=== PATIENT | male | born 1970 | race Caucasian/White ===

== ENCOUNTER 2017-01-02 17:46 | Inpatient (IN) | payer OTHER ==
[~2017-01-02] VITALS: Ht 162.6 cm; Wt 77.1 kg
--- NOTE | 2017-01-02 18:32 | CT SCAN REPORT ---
EXAMINATION: CT HEAD WITHOUT CONTRAST CLINICAL INFORMATION: Right-sided facial numbness for 2 hours. COMPARISON: None TECHNIQUE: Contiguous axial imaging was performed from the skull base to vertex without intravenous administration of contrast. DLP: 608 mGy-cm FINDINGS: There is no evidence of acute intracranial hemorrhage or territorial infarction. No abnormal mass effect or midline shift is seen. Jimenez to white matter differentiation is well preserved. No extra-axial fluid collections are identified. The ventricles are normal in size. There is no abnormal attenuation within the brain parenchyma. The osseous structures and soft tissues are normal. The mastoid air cells and visualized portions of the paranasal sinuses are well aerated. There are postoperative changes along medial sandra of both maxillary sinuses. IMPRESSION: No acute intracranial pathology.
--- NOTE | 2017-01-02 18:47 | ED GENERAL ADULT ---
See Addendum History of Present Illness General Chief Complaint: Neuro Symptoms/ Deficit Stated Complaint: STROKE SYMPTOMS PER PT Source: patient Exam Limitations: no limitations Vital Signs & Intake/Output Vital Signs & Intake/Output Vital Signs Date Time Temp Pulse Resp B/P B/P Pulse O2 O2 Flow FiO2 Mean Ox Delivery Rate 01/02 1802 99.3 95 16 130/84 96 Room Air Allergies Coded Allergies: horse dander (Severe, THROAT SWELLING 01/02/17) milk (Mild, ALLERGIC RHINITIS 01/02/17) Triage Note: RECEIVED 46 YO MALE C/O RIGHT FACIAL NUMBNESS STARTED ABOUT 4 PM TODAY. NO UNILATERAL WEAKNESS OR NUMBNESS NOTED. NO FACIAL DROOP NOTED. NO SLURRED SPEECH. PT JUST GOT BACK FROM [place] THIS THURSDAY AND WAS IN THE [facility] A FEW WEEKS AGO. PT HAS HAD A FEVER AND RIGHT EAR PAIN SINCE THURSDAY. PT SEEN PMD AT [facility] TODAY AND DX WITH AN EAR INFECTION AND PLACED ON ANTIBIOTICS. Triage Nurses Notes Reviewed? yes Onset: Abrupt Duration: hour(s): Timing: recent history HPI: 01/02/17 6:48 PM 46-year-old male presents to the emergency department complaining of right sided facial numbness. According to the patient and his family he was in his usual state of health until the past week. He said that they were on a tropical cruise. Now the patient presents with a sudden onset of right sided facial numbness. No weakness. No ataxia. No definite slurred speech. He has had a recent fever also admits to a tick bite within the last several months. The onset of the symptoms were abrupt, the duration was today, the severity was significant as the symptoms required him to come to the emergency department for care. Past History Travel History Traveled to [place] past 21 day No Medical History Any Pertinent Medical History? see below for history Neurological: NONE EENT: NONE Cardiovascular: NONE Respiratory: asthma Gastrointestinal: NONE Hepatic: NONE Renal: NONE Musculoskeletal: NONE Psychiatric: NONE Endocrine: NONE Blood Disorders: NONE Cancer(s): NONE Surgical History Surgical History: non-contributory Psychosocial History What is your primary language Serbian Tobacco Use: Never used Family History Hx Contributory? No Review of Systems Review of Systems Constitutional: Reports: fever. EENTM: Reports: ear pain. Respiratory: Reports: no symptoms. Cardiovascular: Reports: no symptoms. Denies: chest pain. GI: Reports: no symptoms. Denies: abdominal pain. Genitourinary: Reports: no symptoms. Musculoskeletal: Reports: no symptoms. Skin: Reports: no symptoms. Neurological/Psychological: Reports: no symptoms. Hematologic/Endocrine: Reports: no symptoms. Immunologic/Allergic: Reports: no symptoms. All Other Systems: Reviewed and Negative Physical Exam Physical Exam General Appearance: well developed/nourished, alert, awake, anxious, mild distress Head: atraumatic, normal appearance Eyes: Bilateral: normal appearance, PERRL, EOMI. Ears, Nose, Throat: normal pharynx, normal ENT inspection Neck: normal inspection, supple Respiratory: normal breath sounds, chest non-tender, no respiratory distress Cardiovascular: regular rate/rhythm Peripheral Pulses: 4+ radial (R), 4+ radial (L) Gastrointestinal: soft, non-tender Back: normal range of motion Extremities: no edema Neurologic/Psych: no motor/sensory deficits, awake, alert, oriented x 3 Skin: intact, normal color, warm/dry Comments: The patient has a normal neurological exam is completely asymptomatic now in the emergency Department CT scan of the head was negative labs have been ordered. The patient was signed out to Dr. Barnett at 7 PM. labs and ekg pending. Core Measures ACS in differential dx? No CVA/TIA Diagnosis: No Severe Sepsis Present: No Septic Shock Present: No Progress Differential Diagnoses I considered the following diagnoses in my evaluation of the patient: [CVA, TIA, Lyme disease, Barnett's palsy, otitis media, otitis externa, facial cellulitis] Plan of Care: follow labs reevaluate Initial ED EKG: pending Departure Departure Disposition: STILL A PATIENT Condition: Stable Clinical Impression Primary Impression: Facial weakness Referrals: PATIENT HAS NO PRIMARY CARE DR Departure Forms: Customer Survey General Discharge Information Critical Care Note Critical Care Note Critical Care Time: non-applicable
[2017-01-02 19:54] LABS: ABSOLUTE BASOPHIL COUNT 0 /CUMM (0.0-0.2); ABSOLUTE EOSINOPHIL COUNT 0 /CUMM (0.0-0.7); ABSOLUTE GRANULOCYTE CT 4.4 /CUMM (1.4-6.5); ABSOLUTE LYMPH COUNT 0.8 /CUMM (1.2-3.4); ABSOLUTE MONOCYTE COUNT 0.7 /CUMM (0.10-0.60); BASOPHIL % 0.3 % (0.0-2.0); EOSINOPHIL % 0.5 % (0-5); GRANULOCYTE % 74.1 % (42.2-75.2); HEMATOCRIT 43.3 % (42-52); MEAN CORPUSCULAR HGB 30.1 PG (27.0-31.0); MEAN CORPUSCULAR HGB CONC 34.1 G/DL (33.0-37.0); MEAN CORPUSCULAR VOLUME 88.3 FL (80.0-94.0); MEAN PLATELET VOLUME 8.8 FL (7.4-10.4); PLATELET COUNT 193 /CUMM (130-400); RBC DISTRIBUTION WIDTH 12.2 % (11.5-14.5); RED BLOOD CELL CT 4.91 /CUMM (4.70-6.10)
--- NOTE | 2017-01-02 20:00 | RADIOLOGY REPORT ---
EXAMINATION: XR PORTABLE CHEST CLINICAL INFORMATION: Fever. COMPARISON: None TECHNIQUE: Portable frontal view of the chest was obtained. 7:12 PM FINDINGS: No significant abnormality is noted involving the heart, lungs, mediastinum, bony thorax or soft tissues. IMPRESSION: Unremarkable examination.
[2017-01-02] MEDS ORDERED: AMOX-CLAV 875-1 EACH PO (23:58)
--- NOTE | 2017-01-03 01:10 | History & Physical ---
DION QUINTANILLAJAYASHREECLAUDE 01/03/17 0109: General Information and HPI MD Statement: I have seen and personally examined ADI MCKEE and documented this H& P. The patient is a 46 year old M who presented with a patient stated chief complaint of right-sided facial numbnessX 1 day. Source of Information: patient Exam Limitations: no limitations History of Present Illness: Mr Mckee is a 46-year-old man who is known to be in his usual state of health until 1 week ago. He has no significant past medical history. He came to [facility] with a chief concern of right-sided facial numbness 1 day. As per the patient, he returned from a cruise trip from [facility] one week ago , and developed right ear pain and fever (recorded temperature 101, 105). Reported swimming several times during the trip, and he did not have any symptoms at the time. After he was seen by a physician at work, he was started on an antibiotic for the treatment of right ear infection. The p.m. of the admission to [facility], he noted to have right facial numbness, tingling and not associated with any weakness or slurring of speech. Episode lasted for a few minutes, and resolved with no intervention. Friend was present at the time of the episode, who reported weakness on one side, but the patient did not feel any weakness or drooling. Also reported feeling dizzy, and had severe ear ache, 8/10, radiation to the right side of the face for the last 1 day. No weakness or numbness of upper or lower extremities, loss of bladder or bowel function, loss of consciousness, seizures. Reported to have had a tick bite ( likely from his dog) and did not have any rash at the time. No palpitations, chest pain, cough, abdominal pain, vomiting or diarrhea. No prodromal symptoms noted. Nonsmoker, occasional alcoholic, with children. Family history significant for brain cancer in father and diabetes in mother. Reported being treated for a skin condition, what appears to be folliculitis with prednisone and antibiotic one month ago. Allergies/Medications Allergies: Coded Allergies: horse dander (Severe, THROAT SWELLING 01/02/17) milk (Mild, ALLERGIC RHINITIS 01/02/17) Home Med list Doxycycline Hyclate 100 MG CAPSULE 1 MG PO BID Lyme Gabapentin 300 MG CAPSULE 1 TAB PO Q8P PRN pain Valacyclovir Hydrochloride (Valtrex) 500 MG TABLET 2 TAB PO TID HSV Observation Initial Note - I have personally examined ADI MCKEE on 01/03/17 at 0619. The disposition of ADI MCKEE is uncertain at this time and before a determination can be made, he requires a period of observation for the following reasons #1 check carotid Doppler #2 check echocardiogram #3 neurology consult #4 workup for ruling out causes for TIA. Past History Travel History Traveled to [place] past 21 day No Medical History Neurological: NONE EENT: NONE Cardiovascular: NONE Respiratory: asthma Gastrointestinal: NONE Hepatic: NONE Renal: NONE Musculoskeletal: NONE Psychiatric: NONE Endocrine: NONE Blood Disorders: NONE Cancer(s): NONE Surgical History Surgical History: non-contributory Past Family/Social History Family History Relations & Conditions if any FATHER (brain cancer). Functional Ability ADLs Independent: dressing, eating, toileting, bathing. Ambulation: independent IADLs Independent: shopping, housework, finances, food prep, telephone, transportation , medication admin. Sexual History Sexually Active Yes Review of Systems Review of Systems Constitutional: Reports: see HPI, fever, malaise. Denies: weakness. EENTM: Reports: ear pain. Denies: blurred vision, eye pain, eye drainage, eye tearing, ear redness, hearing changes. Cardiovascular: Denies: chest pain, orthopena, palpitations. Respiratory: Denies: cough, short of breath. GI: Denies: abdominal pain, diarrhea, melena, nausea. Genitourinary: Denies: dysuria. Musculoskeletal: Denies: back pain, joint pain. Skin: Denies: change in skin color. Neurological/Psychological: Reports: numbness, tingling. Denies: anxiety, headache, paresthesia, tonic- clonic seizures. Hematologic/Endocrine: Denies: bruising, bleeding. Immunologic/Allergic: Denies: splenectomy. Exam & Diagnostic Data Last 24 Hrs of Vital Signs/I&O Vital Signs Date Time Temp Pulse Resp B/P B/P Pulse O2 O2 Flow FiO2 Mean Ox Delivery Rate 01/03 0226 100.3 01/03 0151 100.1 101 20 142/80 98 Room Air 01/03 0125 100.9 100 20 139/80 94 Room Air 01/02 2314 98.1 82 18 148/89 95 Room Air Room Air 01/02 2102 98.2 80 18 127/82 93 Room Air 01/02 2100 98.2 80 18 127/80 93 Room Air 01/02 1802 99.3 95 16 130/84 96 Room Air Intake & Output 07 0800 07/ 0000 01/02 1600 Intake Total Output Total Balance Patient 170 lb 170 lb Weight Weight Estimated Measurement Method Physical Exam General Appearance Alert, Oriented X3, Cooperative, No Acute Distress Skin No Rashes, No Breakdown, No Significant Lesion Skin Temp/Moisture Exam: Warm/Dry Sepsis Skin Exam (color): Normal for Ethnicity HEENT Atraumatic, PERRLA, EOMI, Mucous Membr. moist/pink, air fluid levels Neck Supple, No JVD, No thryomegaly Lymphatic Axillary nl, Cervical nl Cardiovascular Regular Rate, Normal S1, Normal S2, No Murmurs Lungs Clear to Auscultation, Normal Air Movement Abdomen Normal Bowel Sounds, Soft, No Tenderness Neurological Normal Gait, Normal Speech, Strength at 5/5 X4 Ext Extremities No Clubbing, No Cyanosis, No Edema Vascular Pulses Symmetrical Sepsis Peripheral Pulse Location: Dorsalis Pedis Sepsis Peripheral Pulse Exam: Bounding Diagnostic Data EKG Results Normal sinus rhythm, normal axis, no ST-T wave changes noted. Normal MA interval. CXR Results Unremarkable examination. Other Results CAT - CT HEAD WO IV CONTRAST No acute intracranial pathology. Assessment/Plan Assessment: He is a middle-aged man with no significant past medical history or any risk factors, is being evaluated for right facial numbness likely from right otitis externa. At the time of admission, vitals-temperature 99.3, pulse rate 95, respirations 16, blood pressure 1:30/84, pulse ox 96% on room air. Lab findings indicated no leukocytosis, normal H&H and WBC 6.0, hemoglobin 14.3, platelets 193. Normal electrolytes, renal function and hepatic liver panel. Cardiac enzymes-negative. Radiological findings-CT head was unremarkable, did not reveal any acute pathology-hemorrhage or ischemic changes. EKG revealed normal sinus rhythm with normal axis. No ST-T wave changes or arrhythmias. Differential diagnosis: #1 acute otitis media #2 rule out transient ischemic attack #3 trigeminal viral neuritis. Below is the problem list and plan: #1 right facial numbness-likely due to acute otitis media. Although the patient had symptoms similar to a TIA, the patient needs to be monitored at least for 24 hours on telemetry to rule out any cardiac arrhythmias and have neuro checks. He has been started on Augmentin for acute otitis externa, and would continue the antibiotics for a period of 7 days. If the symptoms worsen, or have any mastoiditis, may have to get a CAT scan in the future. ENT evaluation as an outpatient, for resolution of pathology. Although there could be a competent of viral infection, prednisone is not indicated at this time. Patient has already taken aspirin-full dose, and would check lipid panel and dose statin. Carotid Doppler to be obtained, echocardiogram. Swallow [id number]. Serial echocardiograms and cardiac enzymes to be obtained. Neurology consult in the a.m. EnT consut in the am. #2 DVT prophylaxis-pharmacological. / As Ranked By This Provider Problem List: 1. Facial weakness Core Measures/Miscellaneous Acute Coronary Syndrome ACS Diagnosis: No Cerebrovascular Accident CVA/TIA Diagnosis: No Date Last Known Well: 01/02/17 Time Last Known Well: 1600 Symptom Start Date: 01/02/17 Symptom Start Time: 1600 Bedside Swallow Eval Done: Yes Result of Evaluation: Pass Antithrombotic: No AFIB: No Aflutter: No Anticoagulant: No Evidence of Atherosclerosis: No LDL Assessed Within 24 Hours: Yes Currently on Statin: No Congestive Heart Failure CHF Diagnosis: No VTE (View Protocol) VTE Risk Factors: Acute medical illness No [facility] VTE prophylaxis d/t: No contraindications No VTE Pharm Prophylaxis d/t: No contraindications VTE Diagnosis: No VTE Type: NONE VTE Confirmed by (Test): NONE Sepsis (View Protocol) Severe Sepsis Present: No Septic Shock Septic Shock Present: No Miscellaneous Documentation Attending Case Discussed With: RADHA EVANS,LALITA Primary Care Physician: ALBA EAGLE MD A Patient sees these Specialists none Level of Patient Care: Telemetry EDWIN HUERTAS 01/03/17 0158: Resident Review Statement Resident Statement: examined this patient, discussed with sports management internship Other Findings: Patient is a 46-year-old women with no significant past medical history presented to the ED for evaluation of sudden onset right-sided facial numbness with tingling. Patient mentioned that he was in his usual state of health until this Thursday and he came back from a cruise trip and developed severe right-sided ear pain associated with fever patient took Tylenol with Advil at home without any improvement in symptoms he was seen by a physician at his work and started him on Augmentin 875 mg twice a day for total of 5 days. Today while he was driving he noticed sudden onset right-sided facial numbness with tingling associated with blurry vision in the right eye, patient took full dose of aspirin 325 mg once and that resulted in resolution of the symptoms within 2 hours Patient denied any slurring of speech/drooling/ any weakness. Denies any chest discomfort or breathing or palpitations . Denied any headaches or dizziness or lightheadedness Patient also admitted that he had a tick bite within the last several months. Patient was also treated for possible skin dermatitis with tapered prednisone about a couple of months ago. While on admission to be 99.3, pulse 95, respiratory rate 16, blood pressure 130 /84 on room air. General Appearance: Alert, not in acute distress Skin: Grossly normal HEENT: PERRLA Neck: Supple, No JVD Cardiovascular: Regular Rate, Normal S1, Normal S2, No Murmurs Lungs: Clear to Auscultation, with some crackles Abdomen: Normal Bowel Sounds, Soft, No Tenderness Neurological: Normal Speech, Strength at 5/5 X4 Ext, Cranial Nerves 3-12 NL, Reflexes 2+ Extremities: No edema in the lower extremities\ Vascular: Normal Pulses . Normal BEP, H&H is stable, chest x-ray did not reveal any acute cardiopulmonary pathology CT scan of the head is negative. Assessment: This is a 46-year-old women with no significant past medical history presented to the ED for evaluation of sudden onset right-sided facial numbness with tingling, apparently symptoms resolved after taking full dose of aspirin. Although the likelihood of TIA is very unlikely but should be ruled out. , Also patient has been having right-sided ear pain with fever and chills since Thursday. Plan Rule out TIA-although the possibility is very less likely. * We'll keep the patient in observation for 24 hours. * Doppler carotid ultrasound and echocardiogram. * Patient passed bedside swallow evaluation no need to do any formal swallow evaluation in the morning. * Neurochecks every 2 hours * Neurology consult in the morning. * Patient already took full dose of aspirin 325 mg, will consider continue aspirin. * Check lipid panel in the morning. 2.Acute otitis media(severe right ear pain with fever): * ENT examination revealed possible underlying biliary infection * Will continue with Augmentin 875 mg twice a day. * Will obtain ENT consult in the morning DVT prophylaxis with Lovenox Mild to moderate pain controlled with Tylenol Patient is full code NAIF LR 01/03/17 0515: Attending MD Review Statement Attending Statement Attending MD Statement: examined this patient, discuss w/resident/PA/SYSTEMS DEVELOPMENT CONSULTANT, agreed w/resident/PA/SYSTEMS DEVELOPMENT CONSULTANT, reviewed EMR data (avail), reviewed images, amended to note Attending Assessment/Plan: CC: Right face numbness PMH: None Patient came to ER for right facial numbness and tingling, transient, resolved after taking aspirin and coming to ER, had mild decreased vision denied any slurring speech or drooling, no tingling numbness in any of the extremities or neurological weakness. Patient had been having some ear pain and right facial pain and jaw pain few days, had fever of 103, went to PCP and was prescribed Augmentin to 1 tablet of it so far. Patient went for cruising, went scuba diving and deep sea diving, [employer]. No family history of stroke or [place], denies smoking, occasional alcohol use, no similar complaints in the past. Vitals: T max in ER 99.3, HR 95, RR 16, blood pressure 130/85, saturating well on room air. On exam: A O 3, cooperative, no acute distress, neck supple, JVD normal, no lymphadenopathy, mucosa moist, complete neurological examination shows no focal neurological deficit, no dependent edema, no obvious skin rashes or inflammation CVS: S1-S2, RRR. RS: Clear to auscultate bilaterally. Abdomen: Soft, NT, ND, bowel sounds present. Right ear: Mild retraction of TM with possible fluid level. No external discharge. No mastoid tenderness, no rash Labs: CBC, BMP, LFT, troponin unremarkable CXR: No acute cardiopulmonary process CT head: No acute intracranial pathology A and P 46-year-old male with no significant past medical history came to ER for transient right facial tingling numbness which is resolved, no other associated neurological symptoms or findings on examination. He also has right ear pain, jaw pain, facial pain, no ear discharge, no ear trauma. Of note he had been swimming, scuba diving, deep sea diving, [employer] recently in his cruise. Suspicion of acute otitis media with transmitted pain but source office tingling numbness is unclear at this point. According to ER physician, he needs TIA workup given his transient neurological symptoms. + Right facial numbness + Right ear pain : ? Otitis media - Place in observation on telemetry - Telemetry monitoring - ENT consult - Continue by mouth Augmentin - Antihistaminic decongestants - Carotid Doppler, 2-D echo - Neurologic consult - Continue aspirin 81 - Adequate pain control
[2017-01-03 01:51] VITALS: BP 142/80
[2017-01-03 07:43] VITALS: BP 128/70
[2017-01-03 09:26] LABS: ABSOLUTE BASOPHIL COUNT 0 /CUMM (0.0-0.2); ABSOLUTE EOSINOPHIL COUNT 0.1 /CUMM (0.0-0.7); ABSOLUTE MONOCYTE COUNT 0.7 /CUMM (0.10-0.60); BASOPHIL % 0.5 % (0.0-2.0); EOSINOPHIL % 1.8 % (0-5); GRANULOCYTE % 63.5 % (42.2-75.2); MEAN CORPUSCULAR HGB 30.4 PG (27.0-31.0); MEAN CORPUSCULAR HGB CONC 34.5 G/DL (33.0-37.0); MEAN PLATELET VOLUME 9.4 FL (7.4-10.4); PLATELET COUNT 179 /CUMM (130-400); RBC DISTRIBUTION WIDTH 12.1 % (11.5-14.5); RED BLOOD CELL CT 4.88 /CUMM (4.70-6.10); WHITE BLOOD CELL COUNT 4.8 /CUMM (4.8-10.8)
--- NOTE | 2017-01-03 10:24 | PN- Att Addend ---
Attending Addendum Attending Brief Note Patient seen and examined. Plan of care discussed with the medical team and the patient. Available lab work and radiology test reports were reviewed. Patient denies any chest pain but complains of intermittent numbness over the right side of face. Denies any visual blurring or any tingling and numbness in hands or feet. Denies any motor weakness otherwise. No hearing loss is reported. Vital Signs Date Time Temp Pulse Resp B/P B/P Pulse O2 O2 Flow FiO2 Mean Ox Delivery Rate 01/03 0743 98.9 70 20 128/70 95 Room Air 01/03 0226 100.3 01/03 0151 100.1 101 20 142/80 98 Room Air 01/03 0125 100.9 100 20 139/80 94 Room Air 01/02 2314 98.1 82 18 148/89 95 Room Air Room Air 01/02 2102 98.2 80 18 127/82 93 Room Air 01/02 2100 98.2 80 18 127/80 93 Room Air 01/02 1802 99.3 95 16 130/84 96 Room Air Intake & Output 01/03 1600 01/03 0800 01/03 0000 Intake Total 200 Output Total Balance 200 Intake, IV 0 Intake, Oral 200 Number 0 Bowel Movements Patient 170 lb 170 lb Weight Weight Estimated Measurement Method Exam: General: Patient awake alert oriented without any distress CVS: S1 plus S2 without any murmur or gallops Chest: Few scattered crepitation without any wheeze. There is no respiratory distress. 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 Pupils are equal bilaterally and reactive to light. Extremities: No edema; no clubbing or cyanosis noted Ears examination: No evidence of otitis externa; right side tympanic membrane appears dull and bulging but not read I have examined his teeth and there was no evidence of any abscess or inflammation gums Laboratory Tests 01/03 01/03 01/03 0825 0825 0135 Chemistry Sodium (137 - 145 mmol/L) 141 Potassium (3.5 - 5.1 mmol/L) 4.2 Chloride (98 - 107 mmol/L) 99 Carbon Dioxide (22 - 30 mmol/L) 27 Anion Gap (5 - 16) 15 BUN (9 - 20 mg/dL) 11 Creatinine (0.7 - 1.2 mg/dL) 0.8 Estimated GFR (>60 ml/min) > 60 BUN/Creatinine Ratio (7 - 25 %) 13.8 Troponin I (<0.11 ng/ml) Cancelled < 0.01 < 0.01 Triglycerides (<150 mg/dL) 123 Cholesterol (< 200 MG/DL) 175 LDL Cholesterol, Calc (65 - 129 mg/dL) 120 HDL Cholesterol (40 - 60 mg/dL) 31 L Cholesterol/HDL Ratio (0.00 - 4.88 %) 6 H Hematology CBC w Diff NO MAN DIFF REQ WBC (4.8 - 10.8 /CUMM) 4.8 RBC (4.70 - 6.10 /CUMM) 4.88 Hgb (14.0 - 18.0 G/DL) 14.8 Hct (42 - 52 %) 43.0 MCV (80.0 - 94.0 FL) 88.0 MCH (27.0 - 31.0 PG) 30.4 RDW (11.5 - 14.5 %) 12.1 Plt Count (130 - 400 /CUMM) 179 MPV (7.4 - 10.4 FL) 9.4 Gran % (42.2 - 75.2 %) 63.5 Lymphocytes % (20.5 - 51.1 %) 20.1 L Monocytes % (1.7 - 9.3 %) 14.1 H Eosinophils % (0 - 5 %) 1.8 Basophils % (0.0 - 2.0 %) 0.5 Absolute Granulocytes (1.4 - 6.5 /CUMM) 3.0 Absolute Lymphocytes (1.2 - 3.4 /CUMM) 1.0 L Absolute Monocytes (0.10 - 0.60 /CUMM) 0.7 H Absolute Eosinophils (0.0 - 0.7 /CUMM) 0.1 Absolute Basophils (0.0 - 0.2 /CUMM) 0 PUBS MCHC (33.0 - 37.0 G/DL) 34.5 01/02 1927 Chemistry Sodium (137 - 145 mmol/L) 138 Potassium (3.5 - 5.1 mmol/L) 4.0 Chloride (98 - 107 mmol/L) 98 Carbon Dioxide (22 - 30 mmol/L) 27 Anion Gap (5 - 16) 14 BUN (9 - 20 mg/dL) 13 Creatinine (0.7 - 1.2 mg/dL) 0.9 Estimated GFR (>60 ml/min) > 60 BUN/Creatinine Ratio (7 - 25 %) 14.4 Glucose (65 - 99 mg/dL) 92 Calcium (8.4 - 10.2 mg/dL) 9.7 Total Bilirubin (0.2 - 1.3 mg/dL) 0.6 AST (17 - 59 U/L) 59 ALT (21 - 72 U/L) 93 H Alkaline Phosphatase (< 127 U/L) 67 Troponin I (<0.11 ng/ml) < 0.01 Total Protein (6.3 - 8.2 g/dL) 7.7 Albumin (3.5 - 5.0 g/dL) 4.8 Globulin (1.9 - 4.2 gm/dL) 2.9 Albumin/Globulin Ratio (1.1 - 2.2 %) 1.7 Hematology CBC w Diff NO MAN DIFF REQ WBC (4.8 - 10.8 /CUMM) 6.0 RBC (4.70 - 6.10 /CUMM) 4.91 Hgb (14.0 - 18.0 G/DL) 14.8 Hct (42 - 52 %) 43.3 MCV (80.0 - 94.0 FL) 88.3 MCH (27.0 - 31.0 PG) 30.1 RDW (11.5 - 14.5 %) 12.2 Plt Count (130 - 400 /CUMM) 193 MPV (7.4 - 10.4 FL) 8.8 Gran % (42.2 - 75.2 %) 74.1 Lymphocytes % (20.5 - 51.1 %) 13.3 L Monocytes % (1.7 - 9.3 %) 11.8 H Eosinophils % (0 - 5 %) 0.5 Basophils % (0.0 - 2.0 %) 0.3 Absolute Granulocytes (1.4 - 6.5 /CUMM) 4.4 Absolute Lymphocytes (1.2 - 3.4 /CUMM) 0.8 L Absolute Monocytes (0.10 - 0.60 /CUMM) 0.7 H Absolute Eosinophils (0.0 - 0.7 /CUMM) 0 Absolute Basophils (0.0 - 0.2 /CUMM) 0 PUBS MCHC (33.0 - 37.0 G/DL) 34.1 Serology Lyme Disease Antibody Pending CT head report reviewed ; No evidence of any stroke Chest x-ray was unremarkable at the time of admission Assessment * Right facial numbness- deferential diagnosis could include Lyme, TIA, right otitis media. Patient reports having tick bite a few months ago without any rash. He also recently has been cruising and topical climate and recalls mosquito bites. Zika should be considered and diagnosis since patient initially started with headache. He does not have typical symptoms of zika virus illness * Rule out stroke * Fever * Right otitis media Plan * Continue oral Augmentin * Continue aspirin * ENT evaluation * Neuro consult * Patient may need MRI of brain * Check ultrasound carotid * Echocardiogram * Patient not stable for discharge today * Await Lyme antibody * send zika serology
--- NOTE | 2017-01-03 13:24 | ULTRASOUND REPORT ---
EXAMINATION: DUPLEX BILATERAL CAROTID ULTRASOUND CLINICAL INFORMATION: Numbness and tingling.. COMPARISON: None. TECHNIQUE: Duplex bilateral carotid US was performed using real-time ultrasound and Doppler techniques (integrating B-mode 2D vascular images, Doppler spectral analysis and color flow Doppler imaging). These techniques were utilized to interrogate the extracranial carotid and vertebral arteries bilaterally. The degree of stenosis is based off criteria similar to NASCET. FINDINGS: No plaque is seen at the carotid bifurcations or within the internal carotid arteries. All velocities are within normal limits. ADDITIONAL FINDINGS: The vertebral arteries show antegrade flow. The external carotid arteries appear normal. IMPRESSION: No evidence of a hemodynamically significant stenosis involving the internal carotid arteries.
--- NOTE | 2017-01-03 13:37 | Cons- Neurology ---
General Information and HPI Consulting Request Date of Consult: 01/03/17 Requested By: NAIF LR MD Reason for Consult: Right facial numbness and stabbing pain Source of Information: patient, old records Exam Limitations: no limitations History of Present Illness: This is a very pleasant 46 year old man who is usually in good health, who was away on business in the [facility] returning this past Thursday, who the next day developed fever, chills, sweats and generalized arthritis. He thought he had a simple cold and so rode it through. However, on Thursday he developed increasing headaches, right ear pain and numbness over the right face. He also developed intermittent sharp stabs within the V1-3 disstribution of the trigeminal nerve. He therefore got concerned and came to the ER. In the ER was non-focal but was admitted. He denies any tick bites, mosquito bites, but was working extensively in his yard before leaving to the [facility] , and does have bypassing deer and rodents. He denies any bull's eye rash, but a few months back had an odd unexplained rash on both dorsal aspects of the hands. This was biopsied by derm and was called "benign". He denies any facial droop, change in gustation, hearing or vertigo. Denies vesicular lesions on ear. Denies any sexual interaction while in the [facility]. Denies GI symptoms. Allergies/Medications Allergies: Coded Allergies: horse dander (Severe, THROAT SWELLING 01/02/17) milk (Mild, ALLERGIC RHINITIS 01/02/17) Home Med List: Amoxicillin/Clavulanate Potass (Amox-Clav 875-125 MG Tablet) 875 MG-125 MG TABLET 1 TAB PO BID EAR INFECTION (Reported) Current Medications: Current Medications Sig/Niecy Start time Last Medication Dose Route Stop Time Status Admin Acetaminophen 650 MG Q6 PRN 01/03 0215 AC PO Acetaminophen 1,000 MG Q6P PRN 01/03 0200 AC 01/03 IV 1052 Acetaminophen/ 0 .STK-MED ONE 01/03 0136 DC Hydrocodone Bitart PO Acetaminophen/ 1 TAB ONCE ONE 01/03 013 DC 01/03 Hydrocodone Bitart PO 01/03 0131 0135 Amoxicillin/ 875 MG Q12 01/03 1000 AC 01/03 Clavulanate Potassium PO 0743 Amoxicillin/ 875 MG ONCE ONE 01/03 130 DC 01/03 Clavulanate Potassium PO 01/03 0131 0135 Aspirin 81 MG DAILY 01/03 1000 AC 01/03 PO 0742 Aspirin 325 MG ONCE ONE 01/02 2345 CAN PO 01/02 2346 Atorvastatin Calcium 40 MG 1700 01/03 1700 AC PO Diphenhydramine HCl 25 MG BID 01/03 1000 AC 01/03 PO 0742 Enoxaparin Sodium 40 MG DAILY 01/03 1000 AC 01/03 SC 0742 Valacyclovir HCl 1,000 MG TID 01/03 1023 AC 01/03 PO 1246 Review of Systems Review of Systems: As per HPI. Otherwise negative to the 10 point comlplete review of systems. 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 Psychosocial History Smoking Status: Never Smoked Functional Ability ADLs Independent: dressing, eating, toileting, bathing. Ambulation: independent IADLs Independent: shopping, housework, finances, food prep, telephone, transportation , medication admin. Exam & Diagnostic Data Vital Signs and I&O Vital Signs Date Time Temp Pulse Resp B/P B/P Pulse O2 O2 Flow FiO2 Mean Ox Delivery Rate 01/03 0743 98.9 70 20 128/70 95 Room Air 01/03 0226 100.3 01/03 0151 100.1 101 20 142/80 98 Room Air 01/03 0125 100.9 100 20 139/80 94 Room Air 01/02 2314 98.1 82 18 148/89 95 Room Air Room Air 01/02 2102 98.2 80 18 127/82 93 Room Air 01/02 2100 98.2 80 18 127/80 93 Room Air 01/02 1802 99.3 95 16 130/84 96 Room Air Intake & Output 01/03 1600 01/03 0800 01/03 0000 Intake Total 200 Output Total Balance 200 Intake, IV 0 Intake, Oral 200 Number 0 Bowel Movements Patient 170 lb 170 lb Weight Weight Estimated Measurement Method Physical Exam: Alert and oriented x 3, fluent and comprehends. S1 and S2 normal, RRR. EOMI, NILSON, no nystagmus, mild loss of sensation over V2-3 distribution on right , face symmetric, no lesions anywhere. tongue midline, uvula in midline, visual scott intact, TPZ strong, hearing normal. Strength intact throughout distribution. Sensory exam otherwise normal. Reflexes normal and symmetrical with down going toes. Gait is normal. Romberg negative. FNF normal. Last 48 Hours of Lab Results: Laboratory Tests 01/03 01/03 01/03 0825 0825 0135 Chemistry Sodium (137 - 145 mmol/L) 141 Potassium (3.5 - 5.1 mmol/L) 4.2 Chloride (98 - 107 mmol/L) 99 Carbon Dioxide (22 - 30 mmol/L) 27 Anion Gap (5 - 16) 15 BUN (9 - 20 mg/dL) 11 Creatinine (0.7 - 1.2 mg/dL) 0.8 Estimated GFR (>60 ml/min) > 60 BUN/Creatinine Ratio (7 - 25 %) 13.8 Troponin I (<0.11 ng/ml) Cancelled < 0.01 < 0.01 Triglycerides (<150 mg/dL) 123 Cholesterol (< 200 MG/DL) 175 LDL Cholesterol, Calc (65 - 129 mg/dL) 120 HDL Cholesterol (40 - 60 mg/dL) 31 L Cholesterol/HDL Ratio (0.00 - 4.88 %) 6 H Hematology CBC w Diff NO MAN DIFF REQ WBC (4.8 - 10.8 /CUMM) 4.8 RBC (4.70 - 6.10 /CUMM) 4.88 Hgb (14.0 - 18.0 G/DL) 14.8 Hct (42 - 52 %) 43.0 MCV (80.0 - 94.0 FL) 88.0 MCH (27.0 - 31.0 PG) 30.4 RDW (11.5 - 14.5 %) 12.1 Plt Count (130 - 400 /CUMM) 179 MPV (7.4 - 10.4 FL) 9.4 Gran % (42.2 - 75.2 %) 63.5 Lymphocytes % (20.5 - 51.1 %) 20.1 L Monocytes % (1.7 - 9.3 %) 14.1 H Eosinophils % (0 - 5 %) 1.8 Basophils % (0.0 - 2.0 %) 0.5 Absolute Granulocytes (1.4 - 6.5 /CUMM) 3.0 Absolute Lymphocytes (1.2 - 3.4 /CUMM) 1.0 L Absolute Monocytes (0.10 - 0.60 /CUMM) 0.7 H Absolute Eosinophils (0.0 - 0.7 /CUMM) 0.1 Absolute Basophils (0.0 - 0.2 /CUMM) 0 PUBS MCHC (33.0 - 37.0 G/DL) 34.5 01/02 1927 Chemistry Sodium (137 - 145 mmol/L) 138 Potassium (3.5 - 5.1 mmol/L) 4.0 Chloride (98 - 107 mmol/L) 98 Carbon Dioxide (22 - 30 mmol/L) 27 Anion Gap (5 - 16) 14 BUN (9 - 20 mg/dL) 13 Creatinine (0.7 - 1.2 mg/dL) 0.9 Estimated GFR (>60 ml/min) > 60 BUN/Creatinine Ratio (7 - 25 %) 14.4 Glucose (65 - 99 mg/dL) 92 Calcium (8.4 - 10.2 mg/dL) 9.7 Total Bilirubin (0.2 - 1.3 mg/dL) 0.6 AST (17 - 59 U/L) 59 ALT (21 - 72 U/L) 93 H Alkaline Phosphatase (< 127 U/L) 67 Troponin I (<0.11 ng/ml) < 0.01 Total Protein (6.3 - 8.2 g/dL) 7.7 Albumin (3.5 - 5.0 g/dL) 4.8 Globulin (1.9 - 4.2 gm/dL) 2.9 Albumin/Globulin Ratio (1.1 - 2.2 %) 1.7 Hematology CBC w Diff NO MAN DIFF REQ WBC (4.8 - 10.8 /CUMM) 6.0 RBC (4.70 - 6.10 /CUMM) 4.91 Hgb (14.0 - 18.0 G/DL) 14.8 Hct (42 - 52 %) 43.3 MCV (80.0 - 94.0 FL) 88.3 MCH (27.0 - 31.0 PG) 30.1 RDW (11.5 - 14.5 %) 12.2 Plt Count (130 - 400 /CUMM) 193 MPV (7.4 - 10.4 FL) 8.8 Gran % (42.2 - 75.2 %) 74.1 Lymphocytes % (20.5 - 51.1 %) 13.3 L Monocytes % (1.7 - 9.3 %) 11.8 H Eosinophils % (0 - 5 %) 0.5 Basophils % (0.0 - 2.0 %) 0.3 Absolute Granulocytes (1.4 - 6.5 /CUMM) 4.4 Absolute Lymphocytes (1.2 - 3.4 /CUMM) 0.8 L Absolute Monocytes (0.10 - 0.60 /CUMM) 0.7 H Absolute Eosinophils (0.0 - 0.7 /CUMM) 0 Absolute Basophils (0.0 - 0.2 /CUMM) 0 PUBS MCHC (33.0 - 37.0 G/DL) 34.1 Serology Lyme Disease Antibody Pending Imaging/Other Studies: Normal NCHCt. Assessment/Plan Assessment: 46 year old with presentation highly suggestive of Lyme disease (diffuse arthritis, fever, peripheral nerve infection). This is in no shape, way or form a TIA or stroke. Recommendations: 1. Pending Lyme. Please send babesia antibodies, ehrlicia antibodies and anaplasma titer. 2. Start Doxycycline temporarily 100 bid until Lyme testing is back. 3. Gabapentin 300 tid PRN for stabbing pain. 4. Stop Lipitor and aspirin. 5. Could continue valacyclovir for now and could send Varicella IgM and IgG titers. (although likelihood is low). 6. Can stop Enoxaprin as patient has no risk factors for DVT and is out of bed often walking around. Consult Acknowledgment - Thank you for your consult request.
--- NOTE | 2017-01-03 14:37 | MRI REPORT ---
EXAMINATION: MR BRAIN WITHOUT CONTRAST CLINICAL INFORMATION: Right-sided facial numbness and right-sided otitis media. Assess for ischemic stroke. COMPARISON: CT scan of the head 01/02/2017. TECHNIQUE: MRI of the brain without contrast was obtained using routine sequences. FINDINGS: No diffusion abnormalities are identified to suggest an acute or subacute infarct. No mass effect or midline shift is seen. The ventricles are normal in size. There are a few isolated foci of T2 and FLAIR hyperintensity in the white matter which are nonspecific. No extra-axial fluid collections are seen. The brainstem and cerebellum are normal. No pathologic magnetic susceptibility artifact is identified on the gradient refocused acquisition. The craniovertebral junction, marrow signal, and midline structures are normal. The major intracranial flow voids at the level of the koi of [place] are preserved. The dural venous sinus flow voids are maintained. There is [id number] mucoperiosteal thickening and retention cyst formation in the bilateral maxillary sinuses. There are sequelae of prior paranasal sinus surgery. The mastoid air cells appear well aerated. There may be a polyp in the posterior nasal cavity on the right laterally. IMPRESSION: 1. There are no acute infarcts or bleeds. 2. There are nonspecific white matter changes. 3. There are paranasal sinus changes.
--- NOTE | 2017-01-03 14:54 | Cons- Ear,Nose&Throat ---
General Information and HPI Consulting Request Date of Consult: 01/03/17 Requested By: NAIF LR MD Reason for Consult: Right ear pain Right lower facial numbness Source of Information: patient Exam Limitations: no limitations History of Present Illness: 46-year-old male who just returned from a cruise to [facility]. Upon arrival at home patient developed a fever of 103 accompanied by generalized malaise, myalgia and headache. This was on 12/31. Fever gradually got better however generalized weakness and muscle aches persisted. The patient then developed right ear pain which was severe and stabbing. Followed by right lower facial numbness and in particular right mandible and lower lip. Yesterday 01/02/2017 patient was observed to develop well right lower lip weakness with exacerbation of the numbness. He wants to the emergency room. By that his lower facial weakness resolved however he continues to have numbness. He was hospitalized. He persists to have fluctuating right ear pain which is stabbing at times. There was also a persistent mild numbness over his right jaw. Right ear feels full, although there is no obvious hearing loss. There is no tinnitus. Patient reports to have mild of balance. Allergies/Medications Allergies: Coded Allergies: horse dander (Severe, THROAT SWELLING 01/02/17) milk (Mild, ALLERGIC RHINITIS 01/02/17) Home Med List: Amoxicillin/Clavulanate Potass (Amox-Clav 875-125 MG Tablet) 875 MG-125 MG TABLET 1 TAB PO BID EAR INFECTION (Reported) Current Medications: Current Medications Sig/Niecy Start time Last Medication Dose Route Stop Time Status Admin Acetaminophen 650 MG Q6 PRN 01/03 0215 AC PO Acetaminophen 1,000 MG Q6P PRN 01/03 0200 AC 01/03 IV 1052 Acetaminophen/ 0 .STK-MED ONE 01/03 0136 DC Hydrocodone Bitart PO Acetaminophen/ 1 TAB ONCE ONE 01/03 013 DC 01/03 Hydrocodone Bitart PO 01/03 013 0135 Amoxicillin/ 875 MG Q12 01/03 1000 AC 01/03 Clavulanate Potassium PO 0743 Amoxicillin/ 875 MG ONCE ONE 01/03 0130 DC 01/03 Clavulanate Potassium PO 01/03 013 0135 Aspirin 81 MG DAILY 01/03 1000 DC 01/03 PO 0742 Aspirin 325 MG ONCE ONE 01/02 2345 CAN PO 01/02 2346 Atorvastatin Calcium 40 MG 1700 01/03 1700 CAN PO Diphenhydramine HCl 25 MG BID 01/03 1000 AC 01/03 PO 0742 Enoxaparin Sodium 40 MG DAILY 01/03 1000 DC 01/03 SC 0742 Valacyclovir HCl 1,000 MG TID 01/03 1023 AC 01/03 PO 1246 Past History Medical History Blood Transfusion Hx: No Neurological: NONE EENT: NONE Cardiovascular: NONE Respiratory: asthma Gastrointestinal: NONE Hepatic: NONE Renal: NONE Musculoskeletal: NONE Psychiatric: NONE Endocrine: NONE Blood Disorders: NONE Cancer(s): 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 Psychosocial History Smoking Status: Never Smoked Functional Ability ADLs Independent: dressing, eating, toileting, bathing. Ambulation: independent IADLs Independent: shopping, housework, finances, food prep, telephone, transportation , medication admin. Review of Systems Review of Systems: Noncontributory Exam & Diagnostic Data Vital Signs and I&O Vital Signs Date Time Temp Pulse Resp B/P B/P Pulse O2 O2 Flow FiO2 Mean Ox Delivery Rate 01/03 0743 98.9 70 20 128/70 95 Room Air 01/03 0226 100.3 01/03 0151 100.1 101 20 142/80 98 Room Air 01/03 0125 100.9 100 20 139/80 94 Room Air 01/02 2314 98.1 82 18 148/89 95 Room Air Room Air 01/02 2102 98.2 80 18 127/82 93 Room Air 01/02 2100 98.2 80 18 127/80 93 Room Air 01/02 1802 99.3 95 16 130/84 96 Room Air Intake & Output 01/03 1600 01/03 0800 01/03 0000 01/02 1600 01/02 0800 01/02 0000 Intake Total 200 Output Total Balance 200 Intake, IV 0 Intake, Oral 200 Number 0 Bowel Movements Patient 170 lb 170 lb Weight Weight Estimated Measurement Method Physical Exam: Well-developed, well-nourished male without acute distress Head: normocephalic, atraumatic Ears: Canals- clear; Tympanic Membranes- clear, no erythema or effusion Nose: Septum-clear ; Turbinates-clear ; Airway-clear Oral cavity: Mucosa- clear Oropharynx: Posterior wall- clear; tonsils-2+/2+, clear Neck: supple Face: Full mobility, no evidence of weakness Mild hypoesthesia over the right mandibular area close to midline, V3 distribution Eyes: No nystagmus, extraocular movements- full Brain MRI 01/03/2017: 1. [id number] mucoperiosteal thickening and retention cyst formation in the bilateral maxillary sinuses. There are sequelae of prior paranasal sinus surgery. There may be a polyp in the posterior nasal cavity on the right laterally. 2. The mastoid air cells appear well aerated. 3. No intracranial abnormality CBC 01/03/2017: WBC 4.1 Assessment/Plan Assessment/Plan 1. Otalgia, right ear accompanied by hypoesthesia V3 distribution- r/o herpes zoster oticus vs bells palsy r/o lyme disease I would favor viral infection due to ear pain [place] palsy may be asymptomatic, specifically no ear pain, just facial numbness rec 1 treatment with acyclovir, Augmentin, steroid taper 2. Keep ear warm by application of cotton with mineral oil, head band, heating pad to right ear 2. No evidence of acute otitis media, right 3. Chronic sinusitis Currently patient is not symptomatic with regard to his sinuses Patient may be discharged on oral medications as above with follow-up in my office for hearing testing, which may be affected with viral infection Consult Acknowledgment - Thank you for your consult request.
[2017-01-03 15:30] VITALS: BP 120/80
[2017-01-03 21:43] VITALS: BP 128/80
[2017-01-04 06:15] VITALS: BP 120/70
--- NOTE | 2017-01-04 08:49 | PN- Housestaff ---
Subjective Follow-up For: right-sided facial numbness r/o TIA Subjective: 46 years old man was admitted for transient right facial numbness w/o any other neurologic sequale. Patient was admitted for workup to R/O TIA. Patient was visited and examined today. Denies any fever chills or any neurological symptoms today. He reports that yesterday he had mild hearing impairment. Denies any visual blurring or any tingling and numbness in hands or feet. Denies any motor weakness otherwise. Objective: AOX3, Exam: General: Patient awake alert oriented without any distress CVS: S1 plus S2 without any murmur or gallops Chest: Few scattered crepitation without any wheeze. There is no respiratory distress. 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 Pupils are equal bilaterally and reactive to light. Extremities: No edema; no clubbing or cyanosis noted No new labs done today. Lyme antibody test is pending CT head report reviewed ; No evidence of any stroke Chest x-ray was unremarkable at the time of admission MRI of the brain was negative for stroke Carotid ultrasound is unremarkable Review of Systems Constitutional: Reports: see HPI.
--- NOTE | 2017-01-04 10:41 | PN- Att Addend ---
Attending Addendum Attending Brief Note Patient seen and examined. Plan of care discussed with the medical team and the patient. Available lab work and radiology test reports were reviewed. Patient feels better and his paresthesias on the right side of face have resolved. Pain is well-controlled. Denies any fever chills or any neurological symptoms today. He reports that yesterday he had mild hearing impairment. Denies any visual blurring or any tingling and numbness in hands or feet. Denies any motor weakness otherwise. Vital Signs Date Time Temp Pulse Resp B/P B/P Pulse O2 O2 Flow FiO2 Mean Ox Delivery Rate 01/04 0615 98.9 70 20 120/70 97 Room Air 01/03 2143 99.3 90 20 128/80 95 Room Air 01/03 1530 99.6 84 20 120/80 96 Room Air Intake & Output 01/04 1600 01/04 0800 01/04 0000 Intake Total 120 720 Output Total Balance 120 720 Intake, Oral 120 720 Exam: General: Patient awake alert oriented without any distress CVS: S1 plus S2 without any murmur or gallops Chest: Few scattered crepitation without any wheeze. There is no respiratory distress. 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 Pupils are equal bilaterally and reactive to light. Extremities: No edema; no clubbing or cyanosis noted No new labs done today. Lyme antibody test is pending CT head report reviewed ; No evidence of any stroke Chest x-ray was unremarkable at the time of admission MRI of the brain was negative for stroke Carotid ultrasound is unremarkable Assessment * Right facial numbness- deferential diagnosis could include Lyme, TIA, herpes zoster, right otitis media. Patient reports having tick bite a few months ago without any rash. He also recently has been cruising in topical climate and recalls mosquito bites. * Rule out stroke- as per neurology low suspicions for stroke and workup so far is negative * Fever Plan * Continue valacyclovir for 1 week * DC aspirin * Rapid prednisone taper over next 4-5 days * Empirical doxycycline 100 mg twice a day for 7 days * ENT evaluation reviewed; patient follow-up with the ENT later this week * Neuro consult note reviewed * stable for discharge today * Await Lyme antibody * Varicella IgM and IgG- please send before discharge * Patient follow with ENT and his PCP Total time spent in preparation for discharge plan, patient education, and CMR preparation was 35 minutes.
--- NOTE | 2017-01-04 10:44 | Patient Discharge Instructions ---
Discharge Instructions General Discharge Information You were seen/treated for: lyme disease right ear othalgia Special Instructions: Please follow up with Dr. Rohit Turner within one week Please follow up with your PCP Diet Continue normal diet: Yes Acute Coronary Syndrome Inclusion Criteria At DC or during hospital stay patient has or had the following: ACS DIAGNOSIS No Discharge Core Measures Meds if any: Prescribed or Continued at Discharge Meds if any: NOT Prescribed or Continued at Discharge Congestive Heart Failure Inclusion Criteria At DC or during hospital stay patient has or had the following: CHF DIAGNOSIS No Discharge Core Measures Meds if any: Prescribed or Continued at Discharge Meds if any: NOT Prescribed or Continued at Discharge Cerebrovascular accident Inclusion Criteria At DC or during hospital stay patient has or had the following: CVA/TIA Diagnosis No Discharge Core Measures Meds if any: Prescribed or Continued at Discharge Meds if any: NOT Prescribed or Continued at Discharge Venous thromboembolism Inclusion Criteria VTE Diagnosis No VTE Type NONE VTE Confirmed by (Test) NONE Discharge Core Measures - Per Current guidelines, there needs to be overlap - treatment for the first 5 days of Warfarin therapy. - If discharged on Warfarin prior to 5 days of - overlap therapy, the patient will need to be - assessed for post discharge needs including - *Post discharge parental anticoagulation - *Warfarin and/or parental anticoagulation education - *Follow up date to check INR post discharge At least 5 days overlap therapy as Inpatient No Meds if any: Prescribed or Continued at Discharge Note: Overlap Therapy is Warfarin and Anticoagulant Meds if any: NOT Prescribed or Continued at Discharge
[2017-01-04] MEDS ORDERED: GABAPENTIN300 M2 PO (10:56)
[2017-01-04] MEDS ORDERED: VALTREX500 M1 PO (10:56)
[2017-01-04] MEDS ORDERED: DOXYCYCLINE HY100 M2 PO (10:56)
== END 2017-01-04 11:45 | DRG 93 ==
LOC: ERH 17:46 → ERHI 21:44 → ENRESERV 01-03 01:09 → 1NO 01-03 01:39 → ENPENDDIS 01-04 11:01 → 1NO 01-04 11:45
PROVIDERS: Emergency Medicine; Student in an Organized Health Care Education/Training Program; ADMIT Internal Medicine
DX: R20.0 Anesthesia of skin (principal); G51.0 Bell's palsy; J45.909 Unspecified asthma, uncomplicated; J32.9 Chronic sinusitis, unspecified; H92.01 Otalgia, right ear; H53.8 Other visual disturbances; H91.90 Unspecified hearing loss, unspecified ear; R50.9 Fever, unspecified
CPT/HCPCS: 1NP; 70551; 86618; 82436; 93005; 93010; J0131; J1650; J3490